=== PATIENT | female | born 1985 | race Two or more races ===

== ENCOUNTER 2018-02-22 12:50 | Emergency (ER) | payer BC, OTHER ==
[~2018-02-22] VITALS: Ht 167.6 cm; Wt 91.6 kg
[~2018-02-22 12:50] MED LIST: CYCL5TAB PO; DOCU100C33 PO; HYDR-3245 PO; IBUP200T49; LISI1TAB3 PO
[2018-02-22 13:51] LABS: CULTURE INDICATED? YES; MICROSCOPIC AUTO
[2018-02-22] MEDS ORDERED: TRAZ50TA18 PO (14:18)
[2018-02-22] MEDS ORDERED: LOSA1TAB19 PO (14:18)
[2018-02-22] MEDS ORDERED: HYDR25CA PO (14:18)
[2018-02-22] MEDS ORDERED: FLUO40CA9 PO (14:18)
[2018-02-22] MEDS ORDERED: SODIUM CHLORIDE FLUSH 10ML SYR IVF ONE (14:30)
[2018-02-22 14:47] LABS: BASOPHILS # (AUTO) 0.04 x10^3/uL (0-0.1); BASOPHILS % (AUTO) 1 % (0-1); EOSINOPHILS # (AUTO) 0.05 x10^3/uL (0-0.4); EOSINOPHILS % (AUTO) 1 % (1-7); LYMPHOCYTES % (AUTO) 37 % (22-44); MD NO; MEAN CORPUSCULAR HEMOGLOBIN 29.3 pg (27.0-34.8); MEAN CORPUSCULAR HGB CONC 33.9 g/dL (32.4-35.8); MEAN CORPUSCULAR VOLUME 86.4 fL (80-100); MEAN PLATELET VOLUME 8.8 fL (7.4-10.4); MONOCYTES # (AUTO) 0.57 x10^3/uL (0.2-0.8); MONOCYTES % (AUTO) 8 % (2-9); NEUTROPHILS % (AUTO) 54 % (42-75); PLATELET COUNT 286 x10^3/uL (130-400); RED BLOOD COUNT 4.95 x10^6/uL (3.82-5.3); RED CELL DISTRIBUTION WIDTH 12.5 % (9.6-15.2)
[2018-02-22 14:57] LABS: ALBUMIN 3.3 g/dL (3.4-5.0); ANION GAP 7 mmol/L (5-15); CALCIUM 8.6 mg/dL (8.5-10.1); CHLORIDE 110 mmol/L (98-107)
[2018-02-22 15:03] LABS: ALANINE AMINOTRANSFERASE 29 U/L (12-78); ALKALINE PHOSPHATASE 76 U/L (45-117); BILIRUBIN,TOTAL 0.5 mg/dL (0.2-1.0); CREATININE 1.04 mg/dL (0.55-1.02); TOTAL PROTEIN 6.7 g/dL (6.4-8.2)
[2018-02-22 16:07] VITALS: BP 110/74
== END 2018-02-22 16:11 | disposition home or self-care (01) ==
LOC: ED 15:49
DX: R10.31 Right lower quadrant pain (principal); R11.0 Nausea; R19.7 Diarrhea, unspecified; I10 Essential (primary) hypertension
CPT/HCPCS: 36415; 76830; 80053; 81001; 83690; 84703; 85025; 87086; 99285

== ENCOUNTER 2018-08-06 07:50 | Emergency (ER) | payer OTHER ==
[~2018-08-06 07:50] MED LIST changes: +FLUO40CA9 PO; +HYDR25CA PO; +LOSA1TAB19 PO; +TRAZ-136 PO
[2018-08-06] MEDS ORDERED: LOSA1TAB22 PO (07:59)
[2018-08-06 08:32] LABS: BASOPHILS # (AUTO) 0.05 x10^3/uL (0-0.1); BASOPHILS % (AUTO) 1 % (0-1); EOSINOPHILS # (AUTO) 0.08 x10^3/uL (0-0.4); EOSINOPHILS % (AUTO) 1 % (1-7); LYMPHOCYTES # (AUTO) 1.83 x10^3/uL (1-3.4); LYMPHOCYTES % (AUTO) 23 % (22-44); MD NO; MEAN CORPUSCULAR HEMOGLOBIN 28.7 pg (27.0-34.8); MEAN CORPUSCULAR HGB CONC 33.5 g/dL (32.4-35.8); MEAN CORPUSCULAR VOLUME 85.6 fL (80-100); MEAN PLATELET VOLUME 8.8 fL (7.4-10.4); MONOCYTES # (AUTO) 0.48 x10^3/uL (0.2-0.8); MONOCYTES % (AUTO) 6 % (2-9); NEUTROPHILS # (AUTO) 5.63 x10^3/uL (1.8-6.8); NEUTROPHILS % (AUTO) 70 % (42-75); PLATELET COUNT 296 x10^3/uL (130-400); RED BLOOD COUNT 4.99 x10^6/uL (3.82-5.3); RED CELL DISTRIBUTION WIDTH 12.4 % (9.6-15.2)
[2018-08-06 08:45] LABS: ALBUMIN 3.3 g/dL (3.4-5.0); ANION GAP 10 mmol/L (5-15); CALCIUM 8.8 mg/dL (8.5-10.1); CHLORIDE 106 mmol/L (98-107); CREATININE 1.08 mg/dL (0.55-1.02)
[2018-08-06 08:49] LABS: TROPONIN I < 0.015 ng/mL (0.000-0.045)
[2018-08-06 09:01] VITALS: BP 130/87
== END 2018-08-06 09:18 | disposition home or self-care (01) ==
LOC: ED 08:46
DX: R07.89 Other chest pain (principal); I10 Essential (primary) hypertension
CPT/HCPCS: 36415; 71046; 80048; 82040; 84484; 85025; 93005; 99285

== ENCOUNTER 2018-10-31 13:34 | Emergency (ER) | payer BC, OTHER ==
[~2018-10-31] VITALS: Ht 172.7 cm; Wt 108.4 kg
[~2018-10-31 13:34] MED LIST changes: +LOSA1TAB22 PO; -TRAZ-136 PO; +TRAZ50TA66 PO
[2018-10-31 13:47] VITALS: BP 138/95
[2018-10-31] MEDS ORDERED: METHOCARBAMOL 750 MG TABLET PO ONE (14:30)
[2018-10-31] MEDS ORDERED: METHOCARBAMOL 750 MG TABLET ONE (14:38)
== END 2018-10-31 15:15 | disposition home or self-care (01) ==
LOC: ED 15:01
DX: G56.03 Carpal tunnel syndrome, bilateral upper limbs (principal); M62.838 Other muscle spasm; I10 Essential (primary) hypertension
CPT/HCPCS: 29260; 99283

== ENCOUNTER 2019-02-27 19:45 | Emergency (ER) | payer BC, OTHER ==
[~2019-02-27] VITALS: Ht 172.7 cm; Wt 103.5 kg
--- NOTE | 2019-02-27 19:55 | NUR ---
PT RESTING IN [facility] AT THIS TIME. PT HAS CALL LIGHT WITHIN REACH. AWAITING ERP.
[2019-02-27] MEDS ORDERED: ONDANSETRON ODT 8 MG ONE (20:13)
[2019-02-27] MEDS ORDERED: LORazepam 1MG TABLET ONE (20:14)
--- NOTE | 2019-02-27 20:16 | NUR ---
PT MEDICATED PER MAR.
[2019-02-27] MEDS ORDERED: LORazepam 1MG TABLET PO ONE (20:30)
[2019-02-27] MEDS ORDERED: ONDANSETRON ODT 8 MG PO ONE (20:30)
[2019-02-27] MEDS ORDERED: ONDANSETRON ODT 4 MG ONE (20:38)
--- NOTE | 2019-02-27 20:59 | NUR ---
pt resting in [facility] at this time; nadn. mccall has partner at bs.
--- NOTE | 2019-02-27 21:40 | NUR ---
PT D/C WITH D/C SUMMARY. ALL QUESTIONS ANSWERED. PT VSS AND UPDATED IN EMR, AND PT REPORTS FEELING BETTER. PT AMBULATES TO REGISTRATION DESK WITH STEADY GAIT FOR D/C HOME WITH FRIENDS. PT DENIES ANY OTHER NEEDS PERTAINING TO THIS VISIT.
[2019-02-27 21:41] VITALS: BP 127/89
== END 2019-02-27 21:43 | disposition home or self-care (01) ==
LOC: ED 21:37
DX: F41.1 Generalized anxiety disorder (principal); I10 Essential (primary) hypertension; F17.200 Nicotine dependence, unspecified, uncomplicated
CPT/HCPCS: 99284; Q0162

== ENCOUNTER 2019-05-14 07:35 | Emergency (ER) | payer OTHER ==
[~2019-05-14] VITALS: Ht 172.7 cm; Wt 103.0 kg
[2019-05-14 07:37] VITALS: BP 125/86
== END 2019-05-14 08:03 | disposition home or self-care (01) ==
LOC: ED 07:52
DX: K08.89 Other specified disorders of teeth and supporting structures (principal); F17.200 Nicotine dependence, unspecified, uncomplicated; I10 Essential (primary) hypertension
CPT/HCPCS: 99283

== ENCOUNTER 2019-08-30 21:11 | Emergency (ER) ==
[~2019-08-30] VITALS: Ht 170.2 cm; Wt 103.2 kg
[~2019-08-30 21:11] MED LIST changes: +LISI1TAB23 PO; -LISI1TAB3 PO
[2019-08-30] MEDS ORDERED: HYDROcodone/APAP 5/325 TABLET ONE (21:42)
[2019-08-30] MEDS ORDERED: HYDROcodone/APAP 5/325 TABLET PO ONE (22:00)
[2019-08-30 22:15] VITALS: BP 166/98
== END 2019-08-30 22:16 | disposition home or self-care (01) ==
LOC: ED 21:50
DX: K08.89 Other specified disorders of teeth and supporting structures (principal); I10 Essential (primary) hypertension
CPT/HCPCS: 99283

== ENCOUNTER 2019-10-10 18:09 | Inpatient (IN) | payer OTHER ==
[~2019-10-10] VITALS: Ht 172.7 cm; Wt 108.0 kg
--- NOTE | 2019-10-10 19:57 | NUR ---
PT HAD ROOT CANAL C RAUL IN [facility] DAME ON TUESDAY. TO ED FOR INCREASED EDEMA & PAIN TO R LOWER JAW. NO AFTERHOURS CALL LINE. PT ON ABX (AMOX) & TAKING NORCO, LAST DOSE AT 1645 TODAY C MILD RELIEF. C/O SWALLOWING, SPEAKING IN FULL SENTACNCES. TBS. CALL LIGHT INREACH.
--- NOTE | 2019-10-10 20:00 | NUR ---
AWARE OF PLAN FOR CT.
--- NOTE | 2019-10-10 20:38 | NUR ---
PT NEED IV FOR CT.
[2019-10-10] MEDS ORDERED: SODIUM CHLORIDE FLUSH 10ML SYR IVF ONE (21:00)
[2019-10-10] MEDS ORDERED: OMNIPAQUE 350 MG/ML, 100ML BOTTLE ONE (21:54)
--- NOTE | 2019-10-10 22:08 | NUR ---
BACK FROM CT. TO RESTROOM. DENIES ANY NEEDS.
[2019-10-10] MEDS ORDERED: MORPHINE SULFATE 4 MG/ML, 1ML IVPush ONE (23:00)
[2019-10-10] MEDS ORDERED: AMPICILLIN/SULBACTAM 3 GM in SODIUM CHLORIDE 0.9% 100 ML IV ONE (23:00)
[2019-10-10] MEDS ORDERED: ONDANSETRON 2MG/ML, 2ML IVPush ONE (23:00)
[2019-10-10 23:02] LABS: BASOPHILS # (AUTO) 0.03 x10^3/uL (0-0.1); BASOPHILS % (AUTO) 0 % (0-1); EOSINOPHILS % (AUTO) 1 % (1-7); LYMPHOCYTES # (AUTO) 1.62 x10^3/uL (1-3.4); LYMPHOCYTES % (AUTO) 16 % (22-44); MD NO; MEAN CORPUSCULAR HGB CONC 33.2 g/dL (32.4-35.8); MEAN CORPUSCULAR VOLUME 84.5 fL (80-100); MEAN PLATELET VOLUME 8.4 fL (7.4-10.4); MONOCYTES # (AUTO) 0.78 x10^3/uL (0.2-0.8); MONOCYTES % (AUTO) 8 % (2-9); NEUTROPHILS # (AUTO) 7.88 x10^3/uL (1.8-6.8); NEUTROPHILS % (AUTO) 76 % (42-75); PLATELET COUNT 337 x10^3/uL (130-400); RED BLOOD COUNT 5.08 x10^6/uL (3.82-5.3); RED CELL DISTRIBUTION WIDTH 14.5 % (9.6-15.2)
[2019-10-10 23:12] LABS: ANION GAP 6 mmol/L (5-15); CHLORIDE 103 mmol/L (98-107); CREATININE 0.94 mg/dL (0.55-1.02)
[2019-10-10] MEDS ORDERED: MORPHINE SULFATE 4 MG/ML, 1ML ONE (23:14)
[2019-10-10] MEDS ORDERED: ONDANSETRON 2MG/ML, 2ML ONE (23:14)
[2019-10-10] MEDS ORDERED: morphine SULFATE 10 MG/ML, 1ML IVPush PRN (23:30)
[2019-10-10] MEDS ORDERED: hydrALAzine 20 MG/ML, 1ML IVPush PRN (23:30)
[2019-10-10] MEDS: AMPICILLIN/SULBACTAM 3 GM in SODIUM CHLORIDE 0.9% 100 ML IV SCH (23:30)
[2019-10-10] MEDS ORDERED: BISACODYL 10 MG SUPP PR PRN (23:30)
[2019-10-10] MEDS ORDERED: ONDANSETRON 2MG/ML, 2ML IVPush PRN (23:30)
[2019-10-10] MEDS ORDERED: ACETAMINOPHEN 325 MG TABLET PO PRN (23:30)
[2019-10-11] MEDS: LACTATED RINGERS 1,000 ML IV SCH ×3 (00:58→17:16)
[2019-10-11 01:10] VITALS: BP 138/93
[2019-10-11] MEDS: OXYcodone/APAP 5/325MG TABLET PO PRN ×3 (02:32→21:23)
[2019-10-11] MEDS: AMPICILLIN/SULBACTAM 3 GM in SODIUM CHLORIDE 0.9% 100 ML IV SCH ×4 (05:11→22:44)
[2019-10-11] MEDS: SENNA/DOCUSATE TABLET PO SCH (09:00)
[2019-10-11 10:00] VITALS: BP 145/103
[2019-10-11] MEDS: LOSARTAN 100 MG TAB PO SCH (10:09)
[2019-10-11] MEDS ORDERED: MIDAZOLAM 1 MG/ML, 2ML ONE (11:04)
[2019-10-11] MEDS ORDERED: FENTANYL PF 250 MCG/5ML ONE (11:04)
[2019-10-11] MEDS ORDERED: MEPERIDINE/PF 25MG/ML,1ML IVPush PRN (11:30)
[2019-10-11] MEDS ORDERED: ONDANSETRON 2MG/ML, 2ML IV PRN (11:30)
[2019-10-11] MEDS ORDERED: PROMETHAZINE 25 MG/ML, 1ML IV PRN (11:30)
[2019-10-11] MEDS ORDERED: hydrALAzine 20 MG/ML, 1ML IV PRN (11:30)
[2019-10-11] MEDS ORDERED: FENTANYL PF 100 MCG/2ML IV PRN (11:30)
[2019-10-11] MEDS ORDERED: HYDROmorphone 2 MG/ML, 1ML IVPush PRN (11:30)
[2019-10-11] MEDS ORDERED: LABETALOL 5MG/ML, 20ML IV PRN (11:30)
[2019-10-11] MEDS ORDERED: OXYcodone 5 MG/5 ML ORAL.SOL UDC PO PRN (11:30)
[2019-10-11] MEDS ORDERED: ROCURONIUM 10 MG/ML,10ML ONE (11:35)
[2019-10-11] MEDS ORDERED: hydrALAzine 20 MG/ML, 1ML ONE (11:35)
[2019-10-11] MEDS ORDERED: ONDANSETRON 2MG/ML, 2ML ONE (11:50)
[2019-10-11] MEDS ORDERED: PROPOFOL 10 MG/ML, 20ML ONE (11:51)
[2019-10-11] MEDS ORDERED: DEXAMETHASONE 4 MG/ML, 1ML ONE (11:51)
[2019-10-11] MEDS ORDERED: SUCCINYLCHOLINE 20 MG/ML, 10ML ONE (11:51)
[2019-10-11] MEDS ORDERED: LIDOCAINE 1%-EPI 1:100K, 20ML ONE (11:52)
[2019-10-11] MEDS ORDERED: OXYcodone 5 MG/5 ML ORAL.SOL UDC ONE (13:07)
[2019-10-11 14:15] VITALS: BP 137/89
[2019-10-11 20:24] VITALS: BP 130/85
[2019-10-11] MEDS: TRAZODONE 50MG TABLET PO SCH (21:23)
[2019-10-12 02:09] VITALS: BP 102/67
[2019-10-12] MEDS: LACTATED RINGERS 1,000 ML IV SCH ×2 (04:47→15:51)
[2019-10-12] MEDS ORDERED: FLU VACC QS2019-20 36MOS UP/PF 0.5 ML IM-VACC ONE (06:30)
[2019-10-12] MEDS: AMPICILLIN/SULBACTAM 3 GM in SODIUM CHLORIDE 0.9% 100 ML IV SCH ×3 (06:33→18:05)
[2019-10-12 08:00] VITALS: BP 142/87
[2019-10-12] MEDS: LOSARTAN 25MG TABLET PO SCH (08:09)
[2019-10-12] MEDS: HYDROCHLOROTHIAZIDE 25 MG TABLET PO SCH (08:09)
[2019-10-12] MEDS: SENNA/DOCUSATE TABLET PO SCH (08:09)
[2019-10-12] MEDS: FLUOXETINE HCL 20 MG CAPSULE PO SCH (08:10)
[2019-10-12] MEDS: LOSARTAN 100 MG TAB PO SCH (08:10)
[2019-10-12] MEDS: OXYcodone/APAP 5/325MG TABLET PO PRN ×3 (09:26→18:05)
[2019-10-12 12:16] VITALS: BP 123/84
[2019-10-12 21:11] VITALS: BP 127/88
[2019-10-12] MEDS: TRAZODONE 50MG TABLET PO SCH (21:42)
[2019-10-13] MEDS: OXYcodone/APAP 5/325MG TABLET PO PRN ×3 (00:01→15:41)
[2019-10-13] MEDS: AMPICILLIN/SULBACTAM 3 GM in SODIUM CHLORIDE 0.9% 100 ML IV SCH ×3 (00:01→12:38)
[2019-10-13] MEDS: LACTATED RINGERS 1,000 ML IV SCH ×2 (02:36→12:38)
[2019-10-13 03:12] VITALS: BP 101/66
[2019-10-13 09:00] VITALS: BP 131/86
[2019-10-13] MEDS: LOSARTAN 25MG TABLET PO SCH (09:02)
[2019-10-13] MEDS: FLUOXETINE HCL 20 MG CAPSULE PO SCH (09:02)
[2019-10-13] MEDS: SENNA/DOCUSATE TABLET PO SCH (09:02)
[2019-10-13] MEDS: HYDROCHLOROTHIAZIDE 25 MG TABLET PO SCH (09:05)
[2019-10-13] MEDS: LOSARTAN 100 MG TAB PO SCH (09:10)
[2019-10-13 13:08] VITALS: BP 128/85
[2019-10-13] MEDS ORDERED: AMOX1TAB64 PO (15:38)
[2019-10-13 16:01] VITALS: BP 139/92
== END 2019-10-13 16:32 | disposition home or self-care (01) | DRG 571 ==
LOC: ED 21:48 → EDIP 23:22 → 5SO 10-11 00:40 → 4NE 10-11 13:43 → DCLOUNGE 10-13 16:22
PROVIDERS: ADMIT Family Medicine; ATTEND Family Medicine
PROC: 0JB40ZZ Excision of Right Neck Subcutaneous Tissue and Fascia, Open Approach (ICD-10-PCS; principal; 2019-10-11 14:00)
DX: L02.11 Cutaneous abscess of neck (principal); L03.211 Cellulitis of face; L02.01 Cutaneous abscess of face; F41.1 Generalized anxiety disorder; I10 Essential (primary) hypertension; F17.200 Nicotine dependence, unspecified, uncomplicated; K04.7 Periapical abscess without sinus; F32.9 Major depressive disorder, single episode, unspecified; E86.0 Dehydration; F12.90 Cannabis use, unspecified, uncomplicated; R59.0 Localized enlarged lymph nodes; Z72.89 Other problems related to lifestyle; Z79.899 Other long term (current) drug therapy
CPT/HCPCS: 36415; 70491; 80048; 84703; 85025; 87070; 87075; 87205; 90686; 96374; 96375; G0378; J0295; J1100; J2250; J2405; J2704; J3010; J3490; Q9967; J0330; J0360; J2270; J7120; Q0177

== ENCOUNTER 2020-10-17 12:06 | Emergency (ER) | payer OTHER ==
[~2020-10-17] VITALS: Ht 172.7 cm; Wt 97.5 kg
[~2020-10-17 12:06] MED LIST changes: +AMOX1TAB64 PO
[2020-10-17 13:01] LABS: BASOPHILS % (AUTO) 1 % (0-1); EOSINOPHILS % (AUTO) 1 % (1-7); LYMPHOCYTES % (AUTO) 31 % (22-44); MEAN CORPUSCULAR HEMOGLOBIN 28.2 pg (27.0-34.8); MEAN CORPUSCULAR HGB CONC 33.2 g/dL (32.4-35.8); MEAN PLATELET VOLUME 8.4 fL (7.4-10.4); MONOCYTES % (AUTO) 8 % (2-9); NEUTROPHILS % (AUTO) 60 % (42-75); PLATELET COUNT 280 x10^3/uL (130-400); RED BLOOD COUNT 5.13 x10^6/uL (3.82-5.3); RED CELL DISTRIBUTION WIDTH 12.2 % (9.6-15.2)
[2020-10-17 13:03] LABS: MD NO
--- NOTE | 2020-10-17 13:08 | NUR ---
Pt to imaging.
--- NOTE | 2020-10-17 13:08 | NUR ---
This pt presents to the ER with complaints of nausea x3 days, vague bowel habit changes including increased urgency but not always able to pass stool and vaginal pain that feels like stretching. Pt denies any trauma/ sx, states she's not had sex in a year and denies urinary s/sx or vaginal discharge. Pt with NADN, call light in reach.
[2020-10-17 13:13] LABS: ALANINE AMINOTRANSFERASE 24 U/L (12-78); ALBUMIN 3.6 g/dL (3.4-5.0); ANION GAP 4 mmol/L (5-15); CALCIUM 9.1 mg/dL (8.5-10.1); CHLORIDE 107 mmol/L (98-107); CREATININE 1.02 mg/dL (0.55-1.02)
[2020-10-17 13:18] LABS: ALKALINE PHOSPHATASE 76 U/L (45-117); BILIRUBIN,TOTAL 0.4 mg/dL (0.2-1.0); TOTAL PROTEIN 6.8 g/dL (6.4-8.2)
[2020-10-17 13:18] LABS: MICROSCOPIC INDICATED
--- NOTE | 2020-10-17 13:33 | NUR ---
Pt remains in imaging.
--- NOTE | 2020-10-17 14:41 | NUR ---
Pt on phone, NADN, all needs met. Chart up for recheck.
[2020-10-17] MEDS ORDERED: SODIUM CHLORIDE FLUSH 10ML SYR IVF ONE (15:30)
[2020-10-17] MEDS ORDERED: OMNIPAQUE 350 MG/ML, 100ML BOTTLE ONE (16:00)
[2020-10-17 17:25] VITALS: BP 129/92
== END 2020-10-17 17:27 | disposition home or self-care (01) ==
LOC: ED 12:34
DX: K52.9 Noninfective gastroenteritis and colitis, unspecified (principal); R10.84 Generalized abdominal pain; R35.0 Frequency of micturition; R11.0 Nausea; I10 Essential (primary) hypertension; E66.9 Obesity, unspecified; Z68.32 Body mass index [BMI] 32.0-32.9, adult; Z79.899 Other long term (current) drug therapy
CPT/HCPCS: 36415; 74021; 74177; 76700; 80053; 81001; 83690; 84703; 85025; 87086; 99285; Q9967